=== PATIENT | male | born 1950 | race Caucasian/White ===

== ENCOUNTER 2020-10-07 11:06 | Outpatient (REF) | payer MEDICARE, OTHER, SELFPAY | END 2020-10-07 11:07 | disposition home or self-care (01) | LOC: HO.LNP 11:06 | PROVIDERS: Visit Provider Hospitalist | DX: J01.90 Acute sinusitis, unspecified (principal); Z20.822 Contact with and (suspected) exposure to COVID-19 | CPT/HCPCS: U0003; U0005 ==

== ENCOUNTER 2022-07-11 10:57 | Outpatient (REF) | payer MEDICARE, OTHER, SELFPAY ==
[2022-07-11 11:45] LABS: Influenza A PCR NEGATIVE (Negative); Influenza B PCR NEGATIVE (Negative); Resp Syncy Virus RNA Qual PCR NEGATIVE (Negative); SARS COV2 PCR INHOUSE NEGATIVE (Negative)
== END 2022-07-11 10:58 | disposition home or self-care (01) ==
LOC: HO.LNP 10:57
PROVIDERS: Visit Provider Physician Assistant Medical
DX: Z20.822 Contact with and (suspected) exposure to COVID-19 (principal); R05.9 Cough, unspecified
CPT/HCPCS: 0241U